=== PATIENT | female | born 1980 | race Caucasian/White ===

== ENCOUNTER 2017-05-04 16:30 | Emergency (ER) | payer BC, MEDICAID ==
[2017-05-04 19:12] VITALS: BP 102/63
[2017-05-04] MEDS ORDERED: Sulfamethoxazole/Trimethoprim 800-160 MG Tab PO ONE (19:26)
--- NOTE | 2017-05-05 02:43 | ER ---
DATE SEEN: 05/04/2017 TIME SEEN: The patient was seen at 1645 hours. HISTORY OF PRESENT ILLNESS: The patient has felt dizzy and has slight sore throat and fever for the last week. She had strep test performed in the clinic 1 to 2 days ago, was negative. She has mild cough. She feels slightly lightheaded and transient blurred vision. She works at [employer]. She is a smoker, half pack per day for 20 years. On 08/2016, she was hospitalized for 9 days for right proximal thigh necrotizing fasciitis with surgery performed. She did well. She is no longer on antibiotics. She is not . She is on control pills. REVIEW OF SYSTEMS: Negative except for as noted above. PHYSICAL EXAMINATION: VITAL SIGNS: Blood pressure 105/62, heart rate 130 elevated, which later came down to 108, respirations 14, oxygen saturation 99%. Weight 70.3 kilos, 26.6 BMI. GENERAL: Alert woman, who is attended by another friend. CONSTITUTIONAL: She is in mild distress. No cyanosis noted. She has no difficulty breathing. HEENT: Pharynx, no erythema. Minimal cervical adenopathy. NECK: Supple. LUNGS: Clear to auscultation without rales, rhonchi, or wheezes. HEART: S1, S2. No murmur. Sinus tachycardia. ABDOMEN: Soft. No guarding. No abdominal discomfort. EXTREMITIES: No rash noted. No pedal edema. Range of motion in the upper and lower extremities are normal. Deep tendon reflexes normal in the upper and lower extremities. NEURO: Cranial nerves 2 through 12 intact. Oriented x3. Gait intact. Romberg negative. No past pointing. No dysmetria. No pronator drift. DIAGNOSTIC STUDIES: X-ray does not reveal an infiltrate. White count is 12,200, PMNs 76, lymphocytes 12, monos 14. Sodium 134, potassium 3.7, chloride 98, BUN is normal at 11, creatinine 0.7, GFR greater than 60, glucose 157, albumin slightly low at 2.9, otherwise normal remainder of liver enzymes. Urinalysis, moderate leukocyte esterase, 10-20 wbc's, many bacteria. ASSESSMENT: 1. Clinical evaluation does not suggest any sepsis or pre-sepsis. Negative SOFAa criteria-abbreviated. 2. Urinary tract infection. PLAN: 1. 1 tablet b.i.d. I have suggested that she has asymptomatic bacteria. She is not aware if she had a frequency, urgency, or dysuria. Consequently, this may be over treatment on the basis of IDSA's recommendation. However, with her persistent and intermittent fevers, possibly it could be from an otherwise asymptomatic urinary tract infection. 2. The patient probably has a viral illness. 3. Tachycardia etiology indeterminate, no suggestion of myocarditis, troponin is negative. 4. No diabetes. 5. She might be under hydrated. Plan is drink two quarts of water on a daily basis. 6. The patient dismissed to follow up with her doctor. The patient is a 3, para 3-0-0-3. Last menstrual period on 04/27/2017. /[id number] WILFRED/SAMREEN MTDBear
--- NOTE | 2017-05-08 14:49 | CR ---
INDICATION: Fever. CHEST, PA AND LATERAL VIEWS: FINDINGS: I do not have dedicated imaging of the chest available. There is an earlier CT abdomen that is from 09/01/2013. On that study, there is a small non -calcified nodule that is identified at the right lateral lung base and measured about 5-6 mm in size. On today's study, the lungs look clear. I cannot confidently identify the nodule that was described back in 2013. There may be some minimal linear scarring or atelectasis in the medial right lung base. There is no pleural effusion. The heart size and pulmonary vasculature are normal. I feel the mediastinal contours are within normal limits. There is a mild scoliosis deformity of the thoracic spine. The upper thoracic spine is curved convex left. The lower thoracic spine is curved convex right. There is some mild degenerative endplate change and spurring throughout the thoracic spine. IMPRESSION: 1. No cause for the patients fever is identified within the chest. There is no pneumonia or CHF. 2. The patient did have a small nodule that was identified by CT in 2013 at the right lung base. I would suspect that that lesion is benign. The lesion was never followed. It may not be unreasonable to do a follow-up CT scan of the chest at some point to ensure that that nodule is truly stable. I cannot confidently identify it by plain film radiographs. VITO
== END 2017-05-04 19:35 | disposition home or self-care (01) ==
LOC: FB.ED 16:30
DX: N39.0 Urinary tract infection, site not specified (principal); F17.210 Nicotine dependence, cigarettes, uncomplicated
CPT/HCPCS: 36415; 71020; 80053; 80074; 81001; 85025; 87086; 87088; 87186; 87389; 99284; A9270